=== PATIENT | male | born 1960 | race Caucasian/White ===

== ENCOUNTER → 2016-06-24 | Outpatient (CLI) | payer OTHER ==
[~2016-06-24] MED LIST: BLOOD PRESSURE MEDS; KEFLEX500 MG PO; Percocet 325 MG1 TAB; SIMVASTATIN20 MG PO; TRIAMTERENE/HCT1 CAP PO; VICODIN 5/500 505 MG PO
== END | disposition home or self-care (01) ==
LOC: MRI 14:47
DX: M72.2 Plantar fascial fibromatosis (principal); M77.31 Calcaneal spur, right foot; R60.0 Localized edema

== ENCOUNTER → 2016-12-05 | Outpatient (CLI) | payer OTHER ==
[2016-12-05 10:11] LABS: BASO % 0.5 % (0.0-1.0); EOS # 0.3 10*3/uL (0.0-0.4); EOS % 4.6 % (1.0-4.0); HEMATOCRIT 48.5 % (42.0-52.0); HEMOGLOBIN 16.5 g/dl (14.0-18.0); LYMPH % 27.7 % (27.0-41.0); MEAN CELL VOLUME 88.8 fl (80.0-94.0); MEAN CORPUSCULAR HGB 30.2 pg (27.0-31.0); MEAN PLATELET VOLUME 8.9 fl (9.6-12.3); MONO # 0.7 10*3/uL (0.1-1.0); NEUT # 4.3 10*3/uL (2.3-7.9); NEUT % 57.9 % (47.0-73.0); PLATELET COUNT AUTOMATED 238 10*3/uL (130-400); RED BLOOD COUNT 5.46 10*6/uL (4.50-5.90); RED CELL DISTRI WIDTH 12.4 % (0-14.5); WHITE BLOOD COUNT 7.4 10*3/uL (4.8-10.8)
[2016-12-05 10:30] LABS: ALBUMIN 3.5 gm/dl (3.1-4.5); ALKALINE PHOSPHATASE 79 U/L (45-117); BUN 16 mg/dl (7-24); CHLORIDE 105 mmol/L (98-107); CHOLESTEROL 141 mg/dL (<200); CREATININE 0.88 mg/dL (0.70-1.30); HDL CHOLESTEROL 47 mg/dl (40-60); LDL CHOLESTEROL 80 mg/dL (9-159); POTASSIUM 3.2 mmol/L (3.5-5.1); SGOT/AST 14 IU/L (3-35); SGPT/ALT 19 U/L (12-78); SODIUM 140 mmol/L (136-145); TOTAL PROTEIN 7.2 gm/dL (6.4-8.2); TRIGLYCERIDES 70 mg/dl (<150); VLDL CHOLESTEROL 14 mg/dL (6-40)
== END | disposition home or self-care (01) ==
LOC: LAB 09:53
PROVIDERS: Internal Medicine
DX: E78.5 Hyperlipidemia, unspecified (principal); E55.9 Vitamin D deficiency, unspecified

== ENCOUNTER → 2018-03-24 | Day surgery (SDC) | payer OTHER ==
[~2018-03-24] VITALS: Ht 182.8 cm; Wt 90.7 kg
[~2018-03-24] MED LIST changes: +COZAAR50 M1 PO; +FISH OIL 1,0001 EAC1 PO
--- NOTE | ~2018-03-24 | O ---
[place], [place] OPERATIVE NOTE NAME: JOSUE CLINTON UNIT #: [id number] ROOM: DOCTOR: RANDY TAY MD BIRTHDATE: [birth year] DOS: 03/24/2018 GASTROENDOSCOPIC REPORT INDICATIONS: This is a 57-year-old patient who has presented with history of colonic polyp, to undergo investigation. ALLERGIES: To no known medication. FAMILY HISTORY: Noncontributory. PAST SURGICAL HISTORY: Left and right inguinal hernia. PAST MEDICAL HISTORY: Hypertension and hyperlipidemia. SOCIAL HISTORY: Nonsmoker, nonalcoholic consumer. PROCEDURE: Today's procedure part of investigation is colonoscopy. PREMEDICATION: Versed and propofol. SCOPE: Olympus folding colonoscope 10L video. REPORT: After putting the patient in left lateral position and application of lubricant to the scope, the scope was introduced. Thereafter, under direct visualization, it was advanced through the length of colon without difficulty. Base of the cecum was explored, appendiceal orifice was identified, and ileocecal valve was defined. No acute pathology was identified. The patient was gradually extubated from ascending, transverse, and descending colon, tolerated the procedure well. IMPRESSION: Normal colonoscopic examination. PLAN AND DISCUSSION: The patient needs colonoscopic evaluation in 10 years. [place], [place] OPERATIVE NOTE NAME: JOSUE CLINTON UNIT #: [id number] ROOM: DOCTOR: RANDY TAY MD BIRTHDATE: [birth year] RANDY TAY MD CM:OPRECORD:OPERATIVE NOTE 1225 1235 RANDY TAY MD 03/24/18 1233 interface
[2018-03-24 10:00] VITALS: BP 136/92
[2018-03-24 12:12] VITALS: BP 114/70
[2018-03-24 12:22] VITALS: BP 119/70
[2018-03-24 12:40] VITALS: BP 129/85
== END | disposition home or self-care (01) ==
LOC: SDC 03-22 10:15
DX: Z12.11 Encounter for screening for malignant neoplasm of colon (principal); I10 Essential (primary) hypertension; E78.5 Hyperlipidemia, unspecified; Z86.010 Personal history of colon polyps; Z98.890 Other specified postprocedural states; Z72.89 Other problems related to lifestyle; Z87.891 Personal history of nicotine dependence; Z79.899 Other long term (current) drug therapy

== ENCOUNTER 2019-02-13 13:06 | Emergency (ER) | payer OTHER ==
[~2019-02-13] VITALS: Ht 182.8 cm; Wt 90.7 kg
[2019-02-13] MEDS ORDERED: CLINDAMYCIN HC300 MG PO (15:28)
== END 2019-02-13 15:33 | disposition home or self-care (01) ==
LOC: ED 13:06
DX: L03.115 Cellulitis of right lower limb (principal); E78.00 Pure hypercholesterolemia, unspecified; I10 Essential (primary) hypertension; Z79.899 Other long term (current) drug therapy

== ENCOUNTER → 2021-08-17 | Outpatient (CLI) | payer OTHER ==
[~2021-08-17] MED LIST changes: +CLINDAMYCIN HC300 MG PO
== END ==
LOC: MRI 08:00
DX: S83.241A Other tear of medial meniscus, current injury, right knee, initial encounter (principal); S83.91XA Sprain of unspecified site of right knee, initial encounter; M79.89 Other specified soft tissue disorders; M25.461 Effusion, right knee; X58.XXXA Exposure to other specified factors, initial encounter; Y93.89 Activity, other specified; Y92.89 Other specified places as the place of occurrence of the external cause; Y99.8 Other external cause status

== ENCOUNTER 2021-09-26 09:05 | Emergency (ER) | payer OTHER ==
[~2021-09-26] VITALS: Ht 182.8 cm; Wt 90.7 kg
[2021-09-26] MEDS ORDERED: LISINOPRIL20 MG PO (09:37)
[2021-09-26 13:32] LABS: BASO % 0.5 % (0.0-1.0); EOS # 0.3 10*3/uL (0.0-0.4); EOS % 3.7 % (1.0-4.0); HEMATOCRIT 46.6 % (42.0-52.0); LYMPH % 23.8 % (27.0-41.0); MEAN CORPUSCULAR HGB 31.1 pg (27.0-31.0); MEAN CORPUSCULAR HGB CONC 34.5 g/dl (33.0-37.0); MEAN PLATELET VOLUME 8.7 fl (9.6-12.3); MONO # 0.9 10*3/uL (0.1-1.0); MONO % 10.6 % (3.0-9.0); NEUT # 5.2 10*3/uL (2.3-7.9); NEUT % 60.7 % (47.0-73.0); PLATELET COUNT AUTOMATED 209 10*3/uL (130-400); RED BLOOD COUNT 5.18 10*6/uL (4.50-5.90); WHITE BLOOD COUNT 8.5 10*3/uL (4.8-10.8)
[2021-09-26 13:50] LABS: ALKALINE PHOSPHATASE 75 U/L (45-117); BUN 20 mg/dl (7-24); CHLORIDE 107 mmol/L (98-107); CREATININE 0.74 mg/dL (0.70-1.30); POTASSIUM 3.8 mmol/L (3.5-5.1); SGOT/AST 17 IU/L (3-35); SGPT/ALT 21 U/L (12-78); SODIUM 138 mmol/L (136-145); TOTAL PROTEIN 6.8 gm/dL (6.4-8.2)
[2021-09-26] MEDS ORDERED: METHOCARBAMOL750 M1 PO (19:35)
[2021-09-26] MEDS ORDERED: NAPROXEN250 MG PO (19:35)
== END 2021-09-26 20:08 | disposition home or self-care (01) ==
LOC: ED 09:05
PROVIDERS: Emergency Medicine
DX: M54.6 Pain in thoracic spine (principal); I10 Essential (primary) hypertension; Z79.899 Other long term (current) drug therapy; Z90.49 Acquired absence of other specified parts of digestive tract

== ENCOUNTER 2021-10-25 00:26 | Emergency (ER) | payer OTHER ==
[~2021-10-25 00:26] MED LIST changes: +LISINOPRIL20 MG PO; +METHOCARBAMOL750 M1 PO; +NAPROXEN250 MG PO
[2021-10-25] MEDS ORDERED: HYDROCODONE-AC1 EAC1 PO (03:58)
== END 2021-10-25 04:23 | disposition home or self-care (01) ==
LOC: ED 00:26
DX: G54.3 Thoracic root disorders, not elsewhere classified (principal); M54.6 Pain in thoracic spine; M25.512 Pain in left shoulder; G58.8 Other specified mononeuropathies; M62.830 Muscle spasm of back; Z79.2 Long term (current) use of antibiotics; Z79.899 Other long term (current) drug therapy; Z90.49 Acquired absence of other specified parts of digestive tract; Z98.890 Other specified postprocedural states

== ENCOUNTER → 2022-06-14 | Outpatient (CLI) | payer OTHER ==
[~2022-06-14] MED LIST changes: +HYDROCODONE-AC1 EAC1 PO
== END | disposition home or self-care (01) ==
LOC: ORTHO 01:09
PROVIDERS: ATTEND Orthopaedic Surgery
DX: M17.11 Unilateral primary osteoarthritis, right knee (principal)

== ENCOUNTER → 2022-11-06 | Outpatient (CLI) | payer OTHER ==
[2022-11-06 08:02] LABS: BASO # 0.1 10*3/uL (0.0-0.1); BASO % 0.7 % (0.0-1.0); EOS # 0.2 10*3/uL (0.0-0.4); EOS % 3.2 % (1.0-4.0); HEMATOCRIT 47.1 % (42.0-52.0); LYMPH # 2.3 10*3/uL (1.3-4.4); MEAN CELL VOLUME 90.4 fl (80.0-94.0); MEAN CORPUSCULAR HGB 31.3 pg (27.0-31.0); MEAN CORPUSCULAR HGB CONC 34.6 g/dl (33.0-37.0); MEAN PLATELET VOLUME 8.8 fl (9.6-12.3); MONO # 0.8 10*3/uL (0.1-1.0); MONO % 10.8 % (3.0-9.0); NEUT # 3.7 10*3/uL (2.3-7.9); NEUT % 51.6 % (47.0-73.0); PLATELET COUNT AUTOMATED 244 10*3/uL (130-400); RED BLOOD COUNT 5.21 10*6/uL (4.50-5.90); RED CELL DISTRI WIDTH 12.3 % (0-14.5); WHITE BLOOD COUNT 7.1 10*3/uL (4.8-10.8)
[2022-11-06 08:03] LABS: BILIRUBIN Negative (Negative); BLOOD Negative (Negative); CLARITY Clear (Clear); COLOR Yellow (Yellow); GLUCOSE Negative (Negative); KETONE Negative (Negative); LEUKO ESTERASE Negative (Negative); NITRITE Negative (Negative); SPECIFIC GRAVITY 1.015 (1.001-1.030); UROBILINOGEN 0.2 E.U./dl (0.0-1.0)
[2022-11-06 08:14] LABS: ACT PARTIAL THROMBO TIME 27.5 SECONDS (20.0-32.1)
[2022-11-06 08:30] LABS: BACTERIA TRACE; MUCOUS TRACE
[2022-11-06 08:31] LABS: ALKALINE PHOSPHATASE 77 U/L (46-116); BUN 14 mg/dl (9-23); CHLORIDE 108 mmol/L (98-107); POTASSIUM 4.1 mmol/L (3.4-5.1); SGPT/ALT 23 U/L (10-49); TOTAL PROTEIN 6.7 gm/dL (6.0-8.0)
== END | disposition home or self-care (01) ==
LOC: LAB 07:30
PROVIDERS: ATTEND Orthopaedic Surgery
DX: Z01.818 Encounter for other preprocedural examination (principal); M17.11 Unilateral primary osteoarthritis, right knee